=== PATIENT | male | born 1995 | race African-American/Black ===

== ENCOUNTER 2020-06-19 20:46 | Emergency (ER) | payer SELFPAY ==
[~2020-06-19] VITALS: Ht 165.1 cm; Wt 60.0 kg
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
--- NOTE | 2020-06-19 21:24 | NUR ---
Placed on legal hold by provider. Charge aware
[2020-06-19 21:30] LABS: BASOPHILS # (AUTO) 0.02 x10^3/uL (0-0.1); BASOPHILS % (AUTO) 0 % (0-1); EOSINOPHILS # (AUTO) 0.01 x10^3/uL (0-0.4); EOSINOPHILS % (AUTO) 0 % (1-7); LYMPHOCYTES # (AUTO) 0.97 x10^3/uL (1-3.4); LYMPHOCYTES % (AUTO) 9 % (22-44); MD NO; MEAN CORPUSCULAR HEMOGLOBIN 31.6 pg (27.5-34.5); MEAN CORPUSCULAR HGB CONC 32.8 g/dL (33.2-36.2); MEAN CORPUSCULAR VOLUME 96.4 fL (81-97); MONOCYTES # (AUTO) 0.77 x10^3/uL (0.2-0.8); MONOCYTES % (AUTO) 7 % (2-9); NEUTROPHILS # (AUTO) 9.29 x10^3/uL (1.8-6.8); NEUTROPHILS % (AUTO) 84 % (42-75); PLATELET COUNT 231 x10^3/uL (130-400); RED BLOOD COUNT 4.02 x10^6/uL (4.38-5.82); RED CELL DISTRIBUTION WIDTH 15.1 % (9.4-14.8)
[2020-06-19 21:32] LABS: ALANINE AMINOTRANSFERASE 16 U/L (12-78); ALBUMIN 3.8 g/dL (3.4-5.0); ANION GAP 6 mmol/L (5-15); CALCIUM 9.1 mg/dL (8.5-10.1); CHLORIDE 108 mmol/L (98-107); CREATININE 1.33 mg/dL (0.7-1.3)
[2020-06-19 21:39] LABS: SALICYLATE LEVEL < 1.7 mg/dL (2.8-20.0)
[2020-06-19 21:42] LABS: ALKALINE PHOSPHATASE 64 U/L (45-117); BILIRUBIN,TOTAL 0.4 mg/dL (0.2-1.0); TOTAL PROTEIN 7.4 g/dL (6.4-8.2)
--- NOTE | 2020-06-19 21:55 | NUR ---
Pt moved to room 1 to be on a watch. Remains a&o x4, calm/cooperative. Changed into hospital gown. Report given to Jenelle ABDUL
--- NOTE | 2020-06-19 22:05 | NUR ---
PT RESTING ON GURNEY NO NEEDS AT THIS TIME
--- NOTE | 2020-06-19 23:02 | NUR ---
TP: PT IS UNABLE TO PROVIDE A UA AT THIS TIME.
--- NOTE | 2020-06-19 23:32 | NUR ---
PT SLEEPING ON ANABELLA CAVAZOS PT AWARE OF NEED FOR URINE SAMPLE
--- NOTE | 2020-06-20 00:48 | NUR ---
PT STILL SLEEPING ON GURNEY PROVIDED WITH WATER AND BLANKETS, ENCOURAGED TO PROVIDE URINE SAMPLE
--- NOTE | 2020-06-20 01:24 | NUR ---
PT STILL SLEEPING NADN NO URINE AT THIS TIME, DENIES NEEDS
--- NOTE | 2020-06-20 03:11 | NUR ---
PT RESTING ON ANABELLA RESP EVEN AND UNLABORED DIRK
--- NOTE | 2020-06-20 04:19 | NUR ---
PT SLEEPING ON ANABELLA RYDERArnold CALL LIGHT IN REACH. PT EXPRESSES NO NEEDS
--- NOTE | 2020-06-20 05:47 | NUR ---
PT STILL SLEEPING ON ANABELLA CAVAZOS
--- NOTE | 2020-06-20 06:36 | NUR ---
PT AMB TO RESTROOM WITH STEADY GAIT, URINE SAMPLE PROVIDED AT THIS TIME
--- NOTE | 2020-06-20 07:03 | NUR ---
report received from vania lewis.
[2020-06-20 07:12] LABS: AMPHETAMINE SCREEN, URINE Negative (Negative); BARBITURATE SCREEN, URINE Negative (Negative); BENZODIAZEPINE SCREEN, URINE Negative (Negative); CANNABINOID SCREEN, URINE Positive (Negative); COCAINE SCREEN, URINE Negative (Negative); METHADONE SCREEN, URINE Negative (Negative); OPIATE SCREEN, URINE Negative (Negative)
--- NOTE | 2020-06-20 08:00 | NUR ---
pt's belonging bags(1 belonging bag/1 backpack/1 baggage) put into the locker. garage door closed.
--- NOTE | 2020-06-20 08:12 | NUR ---
pt's using hospital phone and talking to his family member at this time.
--- NOTE | 2020-06-20 08:21 | NUR ---
Izabela romano in [facility] - 06/20/20 at 0822 by LAURA Astrid méndez's number [phone]
--- NOTE | 2020-06-20 08:22 | NUR ---
pt's mother's number [phone]
--- NOTE | 2020-06-20 09:03 | NUR ---
diet tray provided at this time.
--- NOTE | 2020-06-20 10:11 | NUR ---
pt resting in [facility]. pt's aox4. resps even and unlabored. sitter monitoring from hallway for safety. room remains secure.
--- NOTE | 2020-06-20 11:08 | NUR ---
diet tray ordered at this time.
--- NOTE | 2020-06-20 11:17 | NUR ---
pt's mother updated by phone with pt's permission.
--- NOTE | 2020-06-20 12:20 | NUR ---
break RN note: pt resting on gurney, resps even and unlabored. psych quarter backer consult completed, per quarter backer Ronit, pt safe for discharge. awaiting dc paperwork from [facility].
[2020-06-20 12:42] VITALS: BP 136/82
--- NOTE | 2020-06-20 12:43 | NUR ---
DC ORDERS RECEIVED. PT GIVEN ALL BELONGINGS INCLUDING SUITCASE. PT GETTING DRESSED AT THIS TIME. PT IS A&O, RESPS EVEN AND UNLABORED, NO COMPLAINT AT THIS TIME. PT GIVEN DC INSTRUCTIONS, PT DEMONSTATES UNDERSTANDING. REPORT GIVEN TO PRIMARY RN PETRA WHO WILL COMPLETE DISCARGE PROCESS.
--- NOTE | 2020-06-20 12:50 | NUR ---
Patient given discharge instructions and they have confirmed that they understand the instructions. Patient ambulatory with steady gait.
== END 2020-06-20 12:50 | disposition home or self-care (01) ==
LOC: ED 06-20 06:20
DX: F23 Brief psychotic disorder (principal); F22 Delusional disorders; R41.82 Altered mental status, unspecified
CPT/HCPCS: 36415; 80053; 80307; 84443; 85025; 99284